=== PATIENT | male | born 1955 | race Caucasian/White ===

== ENCOUNTER 2021-05-30 09:58 | Outpatient (CLI) | payer MEDICARE | END 2021-05-30 09:59 | disposition home or self-care (01) | LOC: CTENTCT 09:58 | PROVIDERS: ATTEND Student in an Organized Health Care Education/Training Program | DX: J34.2 Deviated nasal septum (principal) | CPT/HCPCS: 70486 ==

== ENCOUNTER 2021-06-17 07:09 | Outpatient (CLI) | payer MEDICARE ==
[2021-06-17 09:39] LABS: Hemoglobin 14.1 g/dL (13.5-17.5); Mean Corpuscular HGB CONC 32.8 g/dL (32.0-36.0); Mean Corpuscular Hemoglobin 31.1 pg (27.0-33.0); Mean Corpuscular Volume 94.7 fl (81.2-95.1); Mean Platelet Volume 12.3 fl (7.4-10.4); Platelet Count 193 10x3/uL (150-450); RBC Distribution Width 12.6 % (11.5-14.5); Red Blood Cell (RBC) Count 4.54 10x6/uL (4.32-5.72); White Blood Cell (WBC) Count 7.1 10x3/uL (3.5-10.5)
[2021-06-17 09:54] LABS: Anion Gap 15 mmol/L (10-20); BUN (Urea Nitrogen) 21 mg/dL (8.4-25.7); Calc. Creatinine Clearance 0 mL/min (70-130); Calcium 9.6 mg/dL (7.8-10.44); Carbon Dioxide 28 mmol/L (23-31); Chloride 104 mmol/L (98-107); Glucose 86 mg/dL (80-115); Potassium 3.7 mmol/L (3.5-5.1); Sodium 143 mmol/L (136-145)
[2021-06-17 18:04] LABS: SARS-CoV-2 PCR by NAA Not Detected (NotDetected)
== END 2021-06-17 07:10 | disposition home or self-care (01) ==
LOC: LABBT 07:09
PROVIDERS: ATTEND Student in an Organized Health Care Education/Training Program
DX: Z01.818 Encounter for other preprocedural examination (principal); J32.9 Chronic sinusitis, unspecified; J34.2 Deviated nasal septum; R09.82 Postnasal drip; J33.9 Nasal polyp, unspecified; J34.3 Hypertrophy of nasal turbinates; Z20.822 Contact with and (suspected) exposure to COVID-19
CPT/HCPCS: 80048; 85027; 93005; U0003; U0005; 93010

== ENCOUNTER 2021-06-21 12:14 | Day surgery (SDC) | payer MEDICARE ==
[2021-06-20 09:43] VITALS: BMI 30.2
[2021-06-21] MEDS ORDERED: AFRIN NASAL MIST 15 ML BOT ONE ×3 (12:22→17:34)
[2021-06-21] MEDS ORDERED: Midazolam HCl 2 mg/2 ml Vial ONE (14:18)
[2021-06-21] MEDS ORDERED: Fentanyl 100 MCG/2 ML VIAL ONE ×2 (14:18→16:27)
[2021-06-21] MEDS ORDERED: Propofol 1,000 MG/100 ML VIAL IV ONE ×2 (14:18)
[2021-06-21] MEDS ORDERED: HYDROmorphone 0.5 MG/0.5 ML SYRINGE ONE (14:18)
[2021-06-21] MEDS ORDERED: Lidocaine 1% w/Epinephrine 1:100K 20 ML VIAL ONE (14:19)
[2021-06-21] MEDS ORDERED: Lidocaine 1% PF 5 ML VIAL ONE (14:40)
[2021-06-21] MEDS ORDERED: ePHEDrine 50 MG/ML VIAL ONE (14:40)
[2021-06-21] MEDS ORDERED: Ondansetron PF 4 MG/2 ML Vial ONE (14:40)
[2021-06-21] MEDS ORDERED: Rocuronium Bromide 10 MG/ML (10ML VIAL) ONE (14:40)
[2021-06-21] MEDS ORDERED: PROPOFOL 200 MG/20 ML VIAL ONE (14:40)
[2021-06-21] MEDS ORDERED: Dexamethasone 20 MG/5 ML VIAL ONE (14:40)
[2021-06-21] MEDS ORDERED: Glycopyrrolate 0.2 MG/ML 5 ML SYRINGE ONE (14:40)
[2021-06-21] MEDS ORDERED: SUGAMMADEX SODIUM 200 MG/2 ML VIAL ONE (16:27)
[2021-06-21] MEDS ORDERED: Triamcinolone 40 MG/ML VIAL ONE (16:37)
== END 2021-06-21 18:30 | disposition home or self-care (01) ==
LOC: SDC 12:14
PROVIDERS: ATTEND Student in an Organized Health Care Education/Training Program
PROC: 8E09XBZ Computer Assisted Procedure of Head and Neck Region (ICD-10-PCS; principal; 2021-06-21)
PROC: 09BT8ZZ Excision of Left Frontal Sinus, Via Natural or Artificial Opening Endoscopic (ICD-10-PCS; 2021-06-21)
PROC: 09BW8ZZ Excision of Right Sphenoid Sinus, Via Natural or Artificial Opening Endoscopic (ICD-10-PCS; 2021-06-21)
PROC: 09BX8ZZ Excision of Left Sphenoid Sinus, Via Natural or Artificial Opening Endoscopic (ICD-10-PCS; 2021-06-21)
PROC: 09BQ8ZZ Excision of Right Maxillary Sinus, Via Natural or Artificial Opening Endoscopic (ICD-10-PCS; 2021-06-21)
PROC: 09BR8ZZ Excision of Left Maxillary Sinus, Via Natural or Artificial Opening Endoscopic (ICD-10-PCS; 2021-06-21)
PROC: 09BS8ZZ Excision of Right Frontal Sinus, Via Natural or Artificial Opening Endoscopic (ICD-10-PCS; 2021-06-21)
PROC: 09TV8ZZ Resection of Left Ethmoid Sinus, Via Natural or Artificial Opening Endoscopic (ICD-10-PCS; 2021-06-21)
PROC: 09TU8ZZ Resection of Right Ethmoid Sinus, Via Natural or Artificial Opening Endoscopic (ICD-10-PCS; 2021-06-21)
PROC: 09TL8ZZ Resection of Nasal Turbinate, Via Natural or Artificial Opening Endoscopic (ICD-10-PCS; 2021-06-21)
DX: J32.9 Chronic sinusitis, unspecified (principal); J34.3 Hypertrophy of nasal turbinates; J33.8 Other polyp of sinus; J34.2 Deviated nasal septum; G47.30 Sleep apnea, unspecified; D68.2 Hereditary deficiency of other clotting factors; Z86.711 Personal history of pulmonary embolism; Z86.718 Personal history of other venous thrombosis and embolism; Z79.01 Long term (current) use of anticoagulants; Z79.899 Other long term (current) drug therapy; Z98.1 Arthrodesis status
CPT/HCPCS: J0690; J1100; J1170; J2250; J2405; J2704; J3010; J3301; J3490